=== PATIENT | female | born 1995 | race Caucasian/White ===

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

== ENCOUNTER → 2017-04-12 | Outpatient (CLI) | payer OTHER | END | disposition home or self-care (01) | LOC: C.LAB1850 14:47 | PROVIDERS: ATTEND Obstetrics & Gynecology | DX: O20.0 Threatened abortion (principal) ==

== ENCOUNTER → 2017-04-23 | Outpatient (CLI) | payer OTHER | END | disposition home or self-care (01) | LOC: C.LAB1850 09:33 | PROVIDERS: ATTEND Obstetrics & Gynecology | DX: O03.9 Complete or unspecified spontaneous abortion without complication (principal) ==

== ENCOUNTER 2019-12-31 17:44 | Inpatient (IN) ==
[2019-12-31] MEDS ORDERED: OXYTOCIN 30 UNITS/500 ML BAG IV PRN ×2 (18:26→19:36)
[2019-12-31 18:49] LABS: Hematocrit (blood only) 40.3 % (37-47); Hemoglobin 14.1 g/dL (12.0-16.0); Mean Corpuscular Volume 91.4 fL (80-100); Mean Platelet Volume 9.8 fL (7.4-10.4); Platelet Count 157 K/uL (130-400); RDW Coefficient of Variation 13.3 % (11.5-14.5); RDW Standard Deviation 44.2 fL (36.4-46.3); Red Blood Count 4.41 M/uL (4.2-5.4); White Blood Count 12.26 K/uL (4.8-10.8)
--- NOTE | 2019-12-31 19:13 | History & Physical Report ---
Date of Service December 31, 2019 Assessment & Plan (1) Supervision of normal intrauterine in primigravida: 24yo at 38.1 weeks GA. SROM/Early labor 1. Fetus: Cat 1 2. Labor: Changed since she was seen in clinic. Will augment if unchanged at next eval. 3. GBS negative 4. Vitals: WNL 5. Continue home meds 6. UDS pending (2) Drug dependence affecting , antepartum: (3) Late care affecting , antepartum: History of Present Illness Primary Care Provider: NO PCP 24yo at 38.1 weeks GA. Present for LOF since 9am today. Reporting regular contractions that have been increasing in frequency and intensity. Denies VB. complicated by substance abuse with UDS positive for MJ in August. Patient also currently on buprenorphine. Blood Type B Positive 08/21/19 Antibody Screen NEGATIVE 08/21/19 Hemoglobin 12.3 g/dL (12.0-16.0) 10/23/19 Hematocrit 36.3 % (37-47) L 10/23/19 Mean Corpuscular Volume 91.4 fL (80-100) 08/21/19 Platelet Count 162 K/uL (130-400) 08/21/19 Rubella IgG Antibody Immune (Immune) 08/21/19 Rapid Plasma Reagin Nonreactive (Nonreactive) 08/21/19 Hepatitis B Surface Antigen Neg (Neg) 08/21/19 HIV (1&2) Ab and P24 Ag, 4th Gener Neg (Neg) 08/21/19 Glucose 1 Hour 50 gm Load 65 mg/dl (70-130) L 10/23/19 Maternal Serum Alpha Fetoprotein 20.8 ng/mL 08/21/19 OB Optional Labs: Chlamydia trachomatis RNA NOT DETECTED (NOT DETECTED) 08/29/19 Neisseria gonorrhoeae RNA NOT DETECTED (NOT DETECTED) 08/29/19 Alpha Fetoprotein Triple Screen SEE NOTE Allergies Allergy/AdvReac Type Severity Reaction Status Date / Time No Known Drug Allergies Allergy Verified 12/31/19 14:41 Home Medications Home Medications Medication Instructions Recorded Confirmed Type buprenorphine HCl 8 mg sublingual 8 mg SL DAILY 08/21/19 12/31/19 History tablet PNV cmb#95-ferrous fumarate-FA 1 tab PO DAILY 12/31/19 12/31/19 History [] Patient History Medical History (Updated 12/31/19 @ 18:00 by Cris Arrington RN) Depression no current meds Opioid abuse quit 2.5 years ago; currently on Subutex Varicella vaccination Surgical History (Updated 08/21/19 @ 11:04 by Norah Silva) [place] teeth removed Family History (Updated 08/21/19 @ 11:09 by Norah Silva) Father Bipolar 1 disorder Anxiety and depression Grandmother Breast cancer Aunt Anxiety and depression Grandfather Pulmonary embolism Heart disease Hypertension Social History (Updated 08/21/19 @ 11:07 by Norah Silva) 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 Beliefs That Will Affect Care: None marital status: Single marital status details: Ksenia Fields (21) [phone] Current Living Situation: Significant Other Current Living Situation Comment: lives with mom, 1 dog, 1 cat, does not change litter current occupational status: unemployed Feels Safe at Home: Yes Safety Concerns: Feels Safe At This Time Smoking Status: Former smoker Smoking End Date: 03/27/2019 ; Second Hand Exposure: No ; Hx Alcohol Use: No Hx Substance Use: No Physical Exam Gastrointestinal (Abdomen): Inspection/Auscultation: abdomen normal to inspection Percussion/Palpation: abdomen soft; abdomen nontender, no guarding and abdomen not rigid Psychiatric: A+Ox3, euthymic affect Genitourinary: OB Exam Abdomen: + vertex Manual OB Exam: + cervical dilation 3 cm, + cervical effacement 80%, + station -2 and + amniotic fluid clear and ferning present OB Exam Monitor Tracing: + external FHT monitor used, + external uterine monitor used, + category I and + normal FHT variability; no early decelerations present, no late decelerations present and no variable decelerations [place] q3-4 Results & Data Vital Signs (Past 12 Hours) Vital Signs Temp Pulse Resp BP 12/31/19 17:54 36.6 C 56 L 20 123/66 Coding Level of Care Code None Diagnoses Supervision of normal intrauterine in primigravida Z34.00 Drug dependence affecting , antepartum O99.320 Late care affecting , antepartum O09.30
[2019-12-31 19:35] LABS: Amphetamines+Metham, Urine Neg (Neg); Barbiturates, Urine Neg (Neg); Benzodiazepine, Urine Neg (Neg); Cocaine, Urine Neg (Neg); MDMA (Ecstacy), Urine Neg (Neg); Methadone, Urine Neg (Neg); Opiate, Urine Neg (Neg); Phencyclidine, Urine Neg (Neg)
[2019-12-31] MEDS ORDERED: ePHEDrine sulfate 50 MG/ML AMP ONE (20:36)
[2019-12-31] MEDS ORDERED: BUPIVACAINE 0.25% 30 ML VIAL ONE (20:36)
[2019-12-31] MEDS ORDERED: fentaNYL citrate 100 MCG/2 ML VIAL ONE (20:37)
[2019-12-31] MEDS ORDERED: fentaNYL 2MCG/ML ROPIV 1.25MG/ML 100 ML BAG EPI ONE (20:37)
[2019-12-31] MEDS: LACTATED RINGER'S 1,000 ML IV PRN (20:41)
--- NOTE | 2019-12-31 20:43 | Labor Progress Brief Note ---
Date of Service December 31, 2019 Subjective Reason For Note: Routine Evaluation Assessment & Plan (1) Supervision of normal intrauterine in primigravida: 24yo at 38.1 weeks GA. SROM/Early labor 1. Fetus: Cat 1 2. Labor: unchanged. Will augment with oxytocin 3. GBS negative 4. Vitals: WNL 5. Continue home meds 6. UDS negative (2) Drug dependence affecting , antepartum: (3) Late care affecting , antepartum: Physical Exam Genitourinary: OB Exam Abdomen: + vertex Manual OB Exam: + cervical dilation 3 cm, + cervical effacement 80%, + station -2 and + amniotic fluid clear OB Exam Monitor Tracing: + external FHT monitor used, + external uterine monitor used, + category I and + normal FHT variability; no early decelerations present, no late decelerations present and no variable decelerations Results & Data Vital Signs (Past 12 Hours) Vital Signs Temp Pulse Resp BP Pulse Ox 12/31/19 20:38 63 94 12/31/19 20:37 56 L 100 12/31/19 20:32 54 L 100 12/31/19 20:27 66 100 12/31/19 20:26 56 L 130/74 12/31/19 18:11 36.6 C 56 L 20 123/66 12/31/19 17:54 36.6 C 56 L 20 123/66 Coding Level of Care Code None Diagnoses Supervision of normal intrauterine in primigravida Z34.00 Drug dependence affecting , antepartum O99.320 Late care affecting , antepartum O09.30
--- NOTE | 2019-12-31 21:08 | Anesthesiology Consultation ---
Date of Service December 31, 2019 Assessment & Plan Chart Review Chart Review: Acceptable Risk for Labor Epidural Consults Requested none ASA ASA2 Proposed Anesthesia Anesthesia Type: Labor Epidural Risk / Benefits Reviewed With: PT / POA / Parent / Guardian, Accepts Plan and Informed Consent Obtained History Height/Weight Height: 5 ft 9 in Weight: 92.533 kg Allergies Allergy/AdvReac Type Severity Reaction Status Date / Time No Known Drug Allergies Allergy Verified 12/31/19 14:41 Medications Home Medications Medication Instructions Recorded Confirmed Last Taken buprenorphine HCl 8 mg sublingual 8 mg SL DAILY 08/21/19 12/31/19 12/31/19 10:00 tablet PNV cmb#95-ferrous fumarate-FA 1 tab PO DAILY 12/31/19 12/31/19 12/31/19 10:00 [] Active Medications Generic Name Dose Route Start Last Admin Trade Name Freq PRN Reason Stop Dose Admin Lactated Ringer's 1,000 mls @ 125 mls/hr 12/31/19 18:26 12/31/19 20:41 Lr IV 01/02/20 18:25 999 mls/hr .Q8H PRN Administration L&D Protocol Protocol NPO Date Last Intake of Fluids: 12/31/19 Time Last Intake of Fluids: 20:00 Date Last Intake of Solids: 12/31/19 Time Last Intake of Solids: 13:00 Past Medical History Medical History (Updated 12/31/19 @ 18:00 by Cris Arrington RN) Depression no current meds Opioid abuse quit 2.5 years ago; currently on Subutex Varicella vaccination Exercise / Class Metabolic Activity II 4-5 Yardwork/Stairs/Walk up hill Past Family History Family History (Updated 08/21/19 @ 11:09 by Norah Silva) Father Bipolar 1 disorder Anxiety and depression Grandmother Breast cancer Aunt Anxiety and depression Grandfather Pulmonary embolism Heart disease Hypertension Past Surgical History Surgical History (Updated 08/21/19 @ 11:04 by Norah Silva) [place] teeth removed Past Anesthesia History No Hx of Anesthesia Complications and No Family Hx of Anesthesia Complications History of PONV No Hx of PONV and No Hx of Motion Sickness Social History Smoking Status: Former smoker Smoking End Date: 03/27/2019 Hx Alcohol Use: No Hx Substance Use: No substance use type: former substance user Substance Use Type Other:: opiods Last Used Substance Other:: 2.5 years ago Physical Exam Vital Signs Last Vital Signs Temp 36.6 C 12/31/19 18:11 Pulse 54 L 12/31/19 20:58 Resp 20 12/31/19 18:11 BP 130/74 12/31/19 20:26 Pulse Ox 86 L 12/31/19 20:58 ENMT Mouth: no TMJ abnormality Thyromental Distance: > or= 3.5 Finger Breadths Mallampati Class: II Neck normal visual inspection and trachea midline; neck extension not limited Respiratory normal respiratory effort Auscultation: lungs clear to auscultation bilaterally Cardiovascular Rate/Rhythm: regular rate and regular rhythm Heart Sounds: no murmur Musculoskeletal Spine: normal cervical ROM Extremities: full ROM of extremities Neurologic moves all extremities Psychiatric Orientation: alert and oriented x 3 Testing Laboratory Results 12/31/19 18:35
[2019-12-31] MEDS ORDERED: NALBUPHINE HCL INJ 10 MG/ML AMP IV PRN (21:27)
[2019-12-31] MEDS ORDERED: fentaNYL 2MCG/ML ROPIV 1.25MG/ML 100 ML BAG EPI PRN (21:27)
[2019-12-31] MEDS ORDERED: NALOXONE HCL 1 MG in SODIUM CHLORIDE 0.9% 1000ML 1,000 ML IV PRN (21:27)
[2019-12-31] MEDS ORDERED: NALOXONE HCL 0.4 MG/1 ML VIAL/CARP IV PRN (21:27)
[2019-12-31] MEDS ORDERED: ONDANSETRON INJ 2 MG/ML 2 ML VIAL IV PRN (21:27)
[2019-12-31] MEDS ORDERED: DiphenhydrAMINE HCL 50 MG/ML VIAL IV PRN (21:27)
[2019-12-31] MEDS ORDERED: ePHEDrine sulfate 50 MG/ML AMP IV PRN (21:27)
[2019-12-31] MEDS ORDERED: PROMETHAZINE HCL 25 MG in SODIUM CHLORIDE 0.9% 50 ML IV PRN (21:27)
[2019-12-31] MEDS ORDERED: METOCLOPRAMIDE HCL 20 MG in SODIUM CHLORIDE 0.9% 50 ML IV PRN (21:27)
[2020-01-01] MEDS: LACTATED RINGER'S 1,000 ML IV PRN ×2 (00:24→04:35)
--- NOTE | 2020-01-01 06:32 | Labor Progress Brief Note ---
Date of Service January 01, 2020 Subjective Reason For Note: Routine Evaluation Assessment & Plan (1) Supervision of normal intrauterine in primigravida: 24yo at 38.1 weeks GA. SROM/Early labor 1. Fetus: Cat 1 2. Labor: Progressing. oxytocin 3. GBS negative 4. Vitals: WNL 5. Continue home meds 6. UDS negative (2) Drug dependence affecting , antepartum: (3) Late care affecting , antepartum: Physical Exam Genitourinary: OB Exam Abdomen: + vertex Manual OB Exam: + cervical dilation 5 cm, + cervical effacement 80%, + station -2 and + amniotic fluid c lear OB Exam Monitor Tracing: + external FHT monitor used, + external uterine monitor used, + category I and + normal FHT variability; no early decelerations present, no late decelerations present and no variable decelerations Results & Data Vital Signs (Past 12 Hours) Vital Signs Temp Pulse Resp BP Pulse Ox 01/01/20 06:24 73 100 01/01/20 06:19 74 100 01/01/20 06:18 56 L 96/54 L 01/01/20 06:14 63 100 01/01/20 06:09 64 100 01/01/20 06:04 67 99/50 L 77 L 01/01/20 06:03 62 88 L 01/01/20 06:00 36.9 C 18 01/01/20 05:59 67 100 01/01/20 05:57 94 H 91 01/01/20 05:54 67 90 01/01/20 05:51 76 91 01/01/20 05:49 87 118/70 100 01/01/20 05:45 117 H 93 01/01/20 05:44 89 97 01/01/20 05:39 95 H 97 01/01/20 05:34 83 106/66 98 01/01/20 05:29 85 93 01/01/20 05:24 82 95 01/01/20 05:19 90 108/55 L 98 01/01/20 05:18 82 94 01/01/20 05:14 94 H 97 01/01/20 05:09 76 96 01/01/20 05:04 89 108/62 96 01/01/20 04:59 99 H 97 01/01/20 04:54 73 96 01/01/20 04:49 76 111/61 96 01/01/20 04:47 94 H 94 01/01/20 04:44 95 H 95 01/01/20 04:42 85 94 01/01/20 04:39 83 96 01/01/20 04:34 75 96 01/01/20 04:33 76 101/55 L 01/01/20 04:29 78 97 01/01/20 04:24 71 96 01/01/20 04:20 37.1 C 18 01/01/20 04:19 75 97 01/01/20 04:18 71 102/51 L 01/01/20 04:14 83 97 01/01/20 04:09 77 98 01/01/20 04:04 78 97 01/01/20 04:03 73 107/57 L 01/01/20 03:59 80 99 01/01/20 03:54 71 99 01/01/20 03:49 84 103/56 L 99 01/01/20 03:44 75 100 01/01/20 03:39 84 84 L 01/01/20 03:34 56 L 100 01/01/20 03:33 53 L 103/66 01/01/20 03:29 72 100 01/01/20 03:25 66 92 01/01/20 03:24 59 L 100 01/01/20 03:19 57 L 100 01/01/20 03:18 52 L 105/59 L 01/01/20 03:14 64 99 01/01/20 03:09 57 L 100 01/01/20 03:04 59 L 100 01/01/20 03:01 81 89 L 01/01/20 02:59 63 96 01/01/20 02:54 52 L 96 01/01/20 02:49 57 L 96 01/01/20 02:48 51 L 97/55 L 01/01/20 02:44 58 L 96 01/01/20 02:39 61 97 01/01/20 02:34 81 96 01/01/20 02:33 37.0 C 66 18 99/55 L 01/01/20 02:29 61 96 01/01/20 02:24 59 L 96 01/01/20 02:19 58 L 104/59 L 97 01/01/20 02:16 63 91 01/01/20 02:14 63 96 01/01/20 02:09 63 97 01/01/20 02:04 80 99 01/01/20 02:03 70 105/59 L 01/01/20 01:59 58 L 97 01/01/20 01:54 63 99 01/01/20 01:49 69 97 01/01/20 01:48 66 109/56 L 01/01/20 01:44 56 L 98 01/01/20 01:41 83 91 01/01/20 01:39 66 100 01/01/20 01:34 56 L 93/53 L 97 01/01/20 01:29 57 L 97 01/01/20 01:28 58 L 93 01/01/20 01:24 55 L 96 01/01/20 01:19 61 97 01/01/20 01:18 54 L 99/55 L 01/01/20 01:14 60 97 01/01/20 01:09 56 L 99 01/01/20 01:04 53 L 98/53 L 98 01/01/20 00:59 60 98 01/01/20 00:54 55 L 97 01/01/20 00:49 59 L 99/51 L 97 01/01/20 00:44 57 L 97 01/01/20 00:39 57 L 100 01/01/20 00:38 62 92 01/01/20 00:34 63 94/46 L 98 01/01/20 00:28 65 98 01/01/20 00:25 37.1 C 18 01/01/20 00:23 72 100 01/01/20 00:19 59 L 101/53 L 01/01/20 00:18 64 95 01/01/20 00:14 65 91 01/01/20 00:13 65 100 01/01/20 00:08 61 100 01/01/20 00:04 60 96/54 L 01/01/20 00:03 59 L 100 12/31/19 23:58 77 100 12/31/19 23:53 56 L 100 12/31/19 23:48 75 103/55 L 100 12/31/19 23:43 58 L 100 12/31/19 23:42 59 L 90 12/31/19 23:38 58 L 100 12/31/19 23:34 58 L 104/52 L 87 L 12/31/19 23:33 61 100 05 23:28 66 98 05 23:27 70 92 05 23:23 99 H 100 12/31/19 23:19 79 115/66 05 23:18 89 100 05 23:13 85 100 12/31/19 23:09 86 93 05 23:08 97 H 100 12/31/19 23:03 67 109/64 100 12/31/19 22:59 88 90 05 22:58 86 92 12/31/19 22:53 75 100 12/31/19 22:48 63 105/55 L 100 12/31/19 22:43 74 100 12/31/19 22:38 73 100 12/31/19 22:33 36.6 C 90 20 109/69 100 12/31/19 22:28 79 100 12/31/19 22:23 69 100 12/31/19 22:19 72 110/65 05 22:18 80 100 12/31/19 22:16 75 93 12/31/19 22:13 70 100 12/31/19 22:08 80 99 12/31/19 22:03 81 118/66 98 12/31/19 21:58 65 100 12/31/19 21:56 85 89 L 12/31/19 21:53 73 100 20 21:48 61 97 12/31/19 21:47 85 118/65 050620 21:46 88 91 12/31/19 21:43 82 100 05 21:42 68 20 115/64 05/0620 21:39 73 93 [id number] 21:38 86 128/70 100 05/0620 21:33 71 92 05/0620 21:30 65 116/60 05/0620 21:28 92 H 120/69 100 [id number] 21:26 82 117/68 05/0620 21:24 85 117/64 05/0620 21:23 73 100 05/0620 21:22 86 122/73 05/0620 21:19 90 93 05/0620 21:18 89 96 050620 21:13 66 100 0506/20 21:10 77 91 05/06/20 21:07 78 95 12/31/19 21:05 61 89 L 12/31/19 21:02 58 L 100 12/31/19 20:58 36.6 C 54 L 20 86 L 12/31/19 20:57 56 L 100 12/31/19 20:52 54 L 100 12/31/19 20:47 59 L 78 L 12/31/19 20:45 69 89 L 12/31/19 20:42 75 96 12/31/19 20:38 63 94 12/31/19 20:37 56 L 100 12/31/19 20:32 54 L 100 12/31/19 20:27 66 100 12/31/19 20:26 56 L 20 130/74 Coding Level of Care Code None Diagnoses Supervision of normal intrauterine in primigravida Z34.00 Drug dependence affecting , antepartum O99.320 Late care affecting , antepartum O09.30
--- NOTE | 2020-01-01 06:35 | Labor Progress Brief Note ---
Date of Service January 01, 2020 Subjective Reason For Note: Routine Evaluation Assessment & Plan (1) Supervision of normal intrauterine in primigravida: 24yo at 38.1 weeks GA. SROM/Early labor 1. Fetus: Cat 1 2. Labor: Progressing. oxytocin D/c for cxt q1-2 with intolerance 3. GBS negative 4. Vitals: WNL 5. Continue home meds 6. UDS negative (2) Drug dependence affecting , antepartum: (3) Late care affecting , antepartum: Physical Exam Genitourinary: OB Exam Abdomen: + vertex Manual OB Exam: + cervical dilation 8 cm, + cervical effacement 90%, + station 0 and + amniotic fluid clear OB Exam Monitor Tracing: + external FHT monitor used, + external uterine monitor used, + category I and + normal FHT variability; no early decelerations present, no late decelerations present and no variable decelerations Exam per RN Results & Data Vital Signs (Past 12 Hours) Vital Signs Temp Pulse Resp BP Pulse Ox 01/01/20 06:29 72 100 01/01/20 06:24 73 100 01/01/20 06:19 74 100 01/01/20 06:18 56 L 96/54 L 01/01/20 06:14 63 100 01/01/20 06:09 64 100 01/01/20 06:04 67 99/50 L 77 L 01/01/20 06:03 62 88 L 01/01/20 06:00 36.9 C 18 01/01/20 05:59 67 100 01/01/20 05:57 94 H 91 01/01/20 05:54 67 90 01/01/20 05:51 76 91 01/01/20 05:49 87 118/70 100 01/01/20 05:45 117 H 93 01/01/20 05:44 89 97 01/01/20 05:39 95 H 97 01/01/20 05:34 83 106/66 98 01/01/20 05:29 85 93 01/01/20 05:24 82 95 01/01/20 05:19 90 108/55 L 98 01/01/20 05:18 82 94 01/01/20 05:14 94 H 97 01/01/20 05:09 76 96 01/01/20 05:04 89 108/62 96 01/01/20 04:59 99 H 97 01/01/20 04:54 73 96 01/01/20 04:49 76 111/61 96 01/01/20 04:47 94 H 94 01/01/20 04:44 95 H 95 01/01/20 04:42 85 94 01/01/20 04:39 83 96 01/01/20 04:34 75 96 01/01/20 04:33 76 101/55 L 01/01/20 04:29 78 97 01/01/20 04:24 71 96 01/01/20 04:20 37.1 C 18 01/01/20 04:19 75 97 01/01/20 04:18 71 102/51 L 01/01/20 04:14 83 97 01/01/20 04:09 77 98 01/01/20 04:04 78 97 01/01/20 04:03 73 107/57 L 01/01/20 03:59 80 99 01/01/20 03:54 71 99 01/01/20 03:49 84 103/56 L 99 01/01/20 03:44 75 100 01/01/20 03:39 84 84 L 01/01/20 03:34 56 L 100 01/01/20 03:33 53 L 103/66 01/01/20 03:29 72 100 01/01/20 03:25 66 92 01/01/20 03:24 59 L 100 01/01/20 03:19 57 L 100 01/01/20 03:18 52 L 105/59 L 01/01/20 03:14 64 99 01/01/20 03:09 57 L 100 01/01/20 03:04 59 L 100 01/01/20 03:01 81 89 L 01/01/20 02:59 63 96 01/01/20 02:54 52 L 96 01/01/20 02:49 57 L 96 01/01/20 02:48 51 L 97/55 L 01/01/20 02:44 58 L 96 01/01/20 02:39 61 97 01/01/20 02:34 81 96 01/01/20 02:33 37.0 C 66 18 99/55 L 01/01/20 02:29 61 96 01/01/20 02:24 59 L 96 01/01/20 02:19 58 L 104/59 L 97 01/01/20 02:16 63 91 01/01/20 02:14 63 96 01/01/20 02:09 63 97 01/01/20 02:04 80 99 01/01/20 02:03 70 105/59 L 01/01/20 01:59 58 L 97 01/01/20 01:54 63 99 01/01/20 01:49 69 97 01/01/20 01:48 66 109/56 L 01/01/20 01:44 56 L 98 01/01/20 01:41 83 91 01/01/20 01:39 66 100 01/01/20 01:34 56 L 93/53 L 97 01/01/20 01:29 57 L 97 01/01/20 01:28 58 L 93 01/01/20 01:24 55 L 96 01/01/20 01:19 61 97 01/01/20 01:18 54 L 99/55 L 01/01/20 01:14 60 97 01/01/20 01:09 56 L 99 01/01/20 01:04 53 L 98/53 L 98 01/01/20 00:59 60 98 01/01/20 00:54 55 L 97 01/01/20 00:49 59 L 99/51 L 97 01/01/20 00:44 57 L 97 01/01/20 00:39 57 L 100 01/01/20 00:38 62 92 01/01/20 00:34 63 94/46 L 98 01/01/20 00:28 65 98 01/01/20 00:25 37.1 C 18 01/01/20 00:23 72 100 01/01/20 00:19 59 L 101/53 L 01/01/20 00:18 64 95 01/01/20 00:14 65 91 01/01/20 00:13 65 100 01/01/20 00:08 61 100 01/01/20 00:04 60 96/54 L 01/01/20 00:03 59 L 100 12/31/19 23:58 77 100 12/31/19 23:53 56 L 100 12/31/19 23:48 75 103/55 L 100 12/31/19 23:43 58 L 100 12/31/19 23:42 59 L 90 12/31/19 23:38 58 L 100 12/31/19 23:34 58 L 104/52 L 87 L 12/31/19 23:33 61 100 12/31/19 23:28 66 98 12/31/19 23:27 70 92 12/31/19 23:23 99 H 100 12/31/19 23:19 79 115/66 12/31/19 23:18 89 100 12/31/19 23:13 85 100 12/31/19 23:09 86 93 12/31/19 23:08 97 H 100 12/31/19 23:03 67 109/64 100 12/31/19 22:59 88 90 12/31/19 22:58 86 92 12/31/19 22:53 75 100 12/31/19 22:48 63 105/55 L 100 12/31/19 22:43 74 100 12/31/19 22:38 73 100 12/31/19 22:33 36.6 C 90 20 109/69 100 12/31/19 22:28 79 100 12/31/19 22:23 69 100 12/31/19 22:19 72 110/65 12/31/19 22:18 80 100 12/31/19 22:16 75 93 12/31/19 22:13 70 100 12/31/19 22:08 80 99 12/31/19 22:03 81 118/66 98 12/31/19 21:58 65 100 12/31/19 21:56 85 89 L 12/31/19 21:53 73 100 12/31/19 21:48 61 97 12/31/19 21:47 85 118/65 12/31/19 21:46 88 91 12/31/19 21:43 82 100 12/31/19 21:42 68 20 115/64 12/31/19 21:39 73 93 12/31/19 21:38 86 128/70 100 12/31/19 21:33 71 92 12/31/19 21:30 65 116/60 05 21:28 92 H 120/69 100 12/31/19 21:26 82 117/68 05 21:24 85 117/64 0520 21:23 73 100 05 21:22 86 122/73 12/31/19 21:19 90 93 12/31/19 21:18 89 96 12/31/19 21:13 66 100 12/31/19 21:10 77 91 12/31/19 21:07 78 95 12/31/19 21:05 61 89 L 12/31/19 21:02 58 L 100 12/31/19 20:58 36.6 C 54 L 20 86 L 12/31/19 20:57 56 L 100 12/31/19 20:52 54 L 100 12/31/19 20:47 59 L 78 L 12/31/19 20:45 69 89 L 12/31/19 20:42 75 96 12/31/19 20:38 63 94 12/31/19 20:37 56 L 100 12/31/19 20:32 54 L 100 12/31/19 20:27 66 100 12/31/19 20:26 56 L 20 130/74 Coding Level of Care Code None Diagnoses Supervision of normal intrauterine in primigravida Z34.00 Drug dependence affecting , antepartum O99.320 Late care affecting , antepartum O09.30
[2020-01-01] MEDS ORDERED: DIPHTHERIA/TETANUS/PERTUSSIS 0.5 ML SYR/VIAL IM ONE (08:03)
[2020-01-01] MEDS ORDERED: ACETAMINOPHEN 325 MG TAB PO PRN (08:03)
[2020-01-01] MEDS ORDERED: SUPERCREAM 0.870% 15 GM JAR EXT PRN (08:03)
[2020-01-01] MEDS ORDERED: BENZOCAINE 20% AER SPR 82.5 GM CAN EXT PRN (08:03)
[2020-01-01] MEDS ORDERED: HYDROCORTISONE ACETATE 25 MG SUPP PR PRN (08:03)
[2020-01-01] MEDS ORDERED: OXYTOCIN 30 UNITS/500 ML BAG IV PRN (08:03)
[2020-01-01] MEDS ORDERED: bisacodyL 10 MG SUPP PR PRN (08:03)
[2020-01-01] MEDS ORDERED: buprenorphine HCL 8 MG SUBL SL SCH (09:00)
--- NOTE | 2020-01-01 09:22 | Delivery Summary ---
DATE OF OPERATION: 01/01/2020 PROCEDURE: Normal spontaneous vaginal delivery. SURGEON: Joseph Delacruz MD. PREOPERATIVE DIAGNOSES: 1. Single intrauterine at 38 weeks 2 days gestational age. 2. Spontaneous rupture of membranes. 3. History of substance abuse. POSTOPERATIVE DIAGNOSES: 1. Single intrauterine at 38 weeks 2 days gestational age. 2. Spontaneous rupture of membranes. 3. History of substance abuse. 4. Status post delivery. ESTIMATED BLOOD LOSS: 300 mL DRAINS: None. FLUIDS: Continuous lactated ringer. URINE OUTPUT: Not measured. COMPLICATIONS: None. FINDINGS: Viable male infant with weight of 7.46 pounds and Apgars of 8 and 9 at 1 and 5 minutes respectively. INDICATIONS: Desean is a 24-year-old G1, P0 admitted at 38 weeks 1 day gestational age for spontaneous rupture of membranes in early labor. The patient ruptured on the morning of 12/31/2019 at around 9:00 a.m. She presented for care at approximately 6:00 in the evening. The patient was noted to be approximately 3 cm dilated, arben regularly on admission. On reevaluation approximately 2 hours later, the patient was noted to be unchanged and was started on oxytocin. Oxytocin later discontinued secondary to bad tachysystole and intolerance. She continued to progress in labor without additional augmentation and progressed to complete-complete +3 station, at which time she felt the urge to push. The patient pushed over approximately 20 minutes to achieve delivery. DESCRIPTION OF PROCEDURE: The patient progressed to 10 cm dilated, 100% effaced, +2 station, sub-positive 3 station, pushed over intact perineum with epidural anesthesia and delivered a viable male , weight and Apgars as noted above. Head of the delivered in SASHA position, rest into right transverse. No nuchal cord was noted. Body and shoulders quickly followed. was noted to be vigorous soon after delivery and a 1-minute delayed cord clamping was initiated. The cord was then double clamped and cut. remained in maternal abdomen. Cord blood was obtained. Attention was then turned to deliver the placenta, which was delivered intact, 3-vessel cord, gentle cord traction. On inspection of perineum, vagina, and cervix, there was noted to be no repairable lacerations. Sponge and instrument counts were correct at the completion of the case with mother and were stable in the immediate post-delivery period. I attest to the content of the Intraoperative Record and any orders documented therein. Any exception s are noted below.
--- NOTE | 2020-01-01 09:25 | Anesthesia Procedure Note ---
Date of Service January 01, 2020 Anesthesia Post Epidural Note Vital Signs Vital Signs: Temp Pulse Resp BP Pulse Ox 36.7 C 85 18 126/75 98 01/01/20 06:55 01/01/20 09:18 01/01/20 06:55 01/01/20 09:18 01/01/20 07:49 Pain Intensity Vaginal: Pain Intensity: 0 Notes Mental Status: alert / awake / arousable and participated in evaluation Nausea / Vomiting: adequately controlled Pain: adequately controlled Airway Patency, RR, SpO2: stable & adequate BP & HR: stable & adequate Hydration State: stable & adequate Neuraxial Anesthesia: was administered and sensory block is resolving Anesthetic Complications: no major complications apparent and Pt Satisfied with anesthetic care Epidural: Removed without complications and With tip intact
[2020-01-01] MEDS: IBUPROFEN 600 MG TAB PO PRN (09:50)
[2020-01-01] MEDS: buprenorphine HCL 8 MG SUBL SL SCH (20:15)
[2020-01-01] MEDS: DOCUSATE SODIUM 100 MG CAP PO SCH (20:15)
[2020-01-02] MEDS: IBUPROFEN 600 MG TAB PO PRN ×2 (03:09→16:54)
[2020-01-02 06:12] LABS: Hematocrit (blood only) 34.3 % (37-47); Hemoglobin 11.8 g/dL (12.0-16.0)
--- NOTE | 2020-01-02 06:50 | Obstetrical Progress Note ---
Date of Service January 02, 2020 Assessment & Plan (1) Supervision of normal intrauterine in primigravida: - routine care - doing well Subjective Ambulation: ambulating normally Voiding: no voiding problems Physical Exam Constitutional WD/WN, vitals as above Gastrointestinal (Abdomen) Fundus firm below umbilicus Musculoskeletal No deep calf tenderness Results & Data Vital Signs (Past 12 Hours) Vital Signs Temp Pulse Resp BP Pulse Ox 01/02/20 04:05 97.7 F 82 18 115/70 01/01/20 23:30 97.5 F L 76 18 126/76 98 01/01/20 19:16 97.7 F 66 18 125/83 100
[2020-01-02] MEDS: PRENATAL VITAMIN 1 TAB PO SCH (08:37)
[2020-01-02] MEDS: buprenorphine HCL 8 MG SUBL SL SCH ×2 (08:37→20:28)
[2020-01-02] MEDS: FERROUS SULFATE 325 MG TAB PO SCH (08:37)
[2020-01-02] MEDS: DOCUSATE SODIUM 100 MG CAP PO SCH ×2 (08:37→20:28)
[2020-01-02] MEDS ORDERED: bisacodyL 5 MG TABEC PO SCH (20:00)
--- NOTE | 2020-01-03 07:00 | Obstetrical Progress Note ---
Date of Service January 03, 2020 Assessment & Plan (1) Vaginal delivery: Patient doing well. Routine care. Would like d/c today. Instructions given. Plan f/u 6 weeks. Will stay til late afternoon. Day #:: 1 Subjective Ambulation: ambulating normally Voiding: no voiding problems Passing Gas:: Yes Diet Tolerance:: regular diet Lochia:: Small Feeding Type:: breast feeding Physical Exam Constitutional WD/WN, vitals as above Cardiovascular Extremities: no calf tenderness and no edema Gastrointestinal (Abdomen) soft, nt, nd ff/nt at u Results & Data Vital Signs (Past 12 Hours) Vital Signs Temp Pulse Resp BP 01/03/20 00:15 36.6 C 59 L 18 122/68
[2020-01-03] MEDS: FERROUS SULFATE 325 MG TAB PO SCH (08:41)
[2020-01-03] MEDS: PRENATAL VITAMIN 1 TAB PO SCH (08:41)
[2020-01-03] MEDS: DOCUSATE SODIUM 100 MG CAP PO SCH (08:41)
[2020-01-03] MEDS: buprenorphine HCL 8 MG SUBL SL SCH (09:21)
== END 2020-01-03 18:09 | disposition home or self-care (01) | DRG 807 ==
LOC: OPB 17:44 → 4S2 17:45 → 4S1 19:20 → 4N 01-01 13:40 → 4S2 01-02 13:24